=== PATIENT | male | born 1975 | race Hispanic/Latino ===

== ENCOUNTER 2021-08-01 11:04 | Outpatient (CLI) | payer MEDICARE | END 2021-08-01 11:05 | disposition home or self-care (01) | LOC: LAB 11:04 | PROVIDERS: ATTEND Student in an Organized Health Care Education/Training Program | DX: R78.89 Finding of other specified substances, not normally found in blood (principal) | CPT/HCPCS: 36415; 80178 ==

== ENCOUNTER 2021-09-22 20:06 | Emergency (ER) | payer MEDICARE ==
[2021-09-22] MEDS ORDERED: LORazepam 2 MG/ML VIAL IM PRN (21:02)
[2021-09-22] MEDS ORDERED: HALOPERIDOL LACTATE 5 MG/1 ML INJ IM PRN (21:02)
[2021-09-22] MEDS ORDERED: chlordiazePOXIDE 25 MG CAP PO PRN ×2 (21:03)
[2021-09-22] MEDS ORDERED: LORazepam 2 MG/ML VIAL IV PRN ×2 (21:03)
--- NOTE | 2021-09-22 21:04 | Emergency Department Report ---
ED General Adult HPI - General Chief complaint: Psych Stated complaint: They told me to come here Time Seen by Provider: 09/22/21 20:54 Source: patient, EMS ( EMS documentation not available at time of chart dictation ), RN notes reviewed, old records reviewed Mode of arrival: Ambulatory Limitations: No Limitations - History of Present Illness Initial comments: Patient is a 46-year-old gentleman, with no history of psychiatric disease, alcoholism, bipolar, possible diabetes and hypertension, presents to the ER with a complaint of "they told me to come here." The patient reports that he is requesting detox. When asked about feeling homicidal or suicidal, he states "it would just be quicker if I jumped off of a bridge." The patient denies overd ose. The patient is not COVID-19 vaccinated. On review of systems, he endorses chronic arthritic pain and musculoskeletal pain. He reports that he lives "all over." He denies trying to overdose. Severity scale (0 -10): 0 Improves with: none Worsens with: none - Related Data Allergies Allergy/AdvReac Type Severity Reaction Status Date / Time No Known Allergies Allergy Unverified 09/22/21 20:14 ED Review of Systems ROS: Stated complaint: PSYCH EVAL/ETOH Other details as noted in HPI Constitutional: denies: fever Eyes: denies: eye discharge ENT: denies: epistaxis Respiratory: denies: cough Cardiovascular: denies: chest pain Gastrointestinal: denies: abdominal pain Genitourinary: denies: dysuria Musculoskeletal: back pain, arthralgia Neurological: denies: weakness Psychiatric: anxiety, depression, suicidal thoughts ED Past Medical Hx - Past Medical History Previous Medical History?: Yes Hx Hypertension: Yes Hx Diabetes: Yes Hx Psychiatric Treatment: Yes (Bipolar) - Surgical History Past Surgical History?: No ED Physical Exam - General Limitations: No Limitations General appearance: alert, in no apparent distress - Head Head exam: Present: atraumatic, normocephalic - Eye Eye exam: Present: normal appearance, EOMI. Absent: nystagmus - ENT ENT exam: Present: normal exam, normal orophraynx, mucous membranes moist, normal external ear exam - Neck Neck exam: Present: normal inspection, full ROM. Absent: tenderness, meningismus - Respiratory Respiratory exam: Present: normal lung sounds bilaterally. Absent: respiratory distress, wheezes, rales, rhonchi, stridor, decreased breath sounds - Cardiovascular Cardiovascular Exam: Present: regular rate, normal rhythm, normal heart sounds. Absent: bradycardia, tachycardia, irregular rhythm, systolic murmur, diastolic murmur, rubs, gallop - GI/Abdominal GI/Abdominal exam: Present: soft. Absent: distended, tenderness, rebound, rigid, pulsatile mass - Rectal Rectal exam: Present: deferred - Extremities Exam Extremities exam: Present: normal inspection, full ROM, other (2+ pulses noted in the bilateral upper and lower extremities. There is no palpable cord. negative Homans sign. Muscular compartments are soft. The pelvis is stable.). Absent: pedal edema, calf tenderness - Back Exam Back exam: Present: normal inspection, full ROM. Absent: tenderness, CVA tenderness (R), CVA tenderness (L), paraspinal tenderness, vertebral tenderness - Neurological Exam Neurological exam: Present: alert, normal gait, other (No facial droop. Tongue midline. Extraocular movements intact bilaterally. Facial sensation intact to light touch in V1, V2, V3 distribution bilaterally. 5 and a 5 strength in 4 extremities. Sensation intact to light touch in 4 extremities.). Absent: motor sensory deficit - Psychiatric Psychiatric exam: Present: depressed, flat affect, suicidal ideation - Skin Skin exam: Present: warm, dry, intact, normal color. Absent: rash ED Course Vital Signs 09/22/21 20:14 Temperature 98 F Pulse Rate 94 H Respiratory 18 Rate Blood Pressure 130/80 [Right] O2 Sat by Pulse 98 Oximetry - Reevaluation(s) Reevaluation #1: 09/22/21 21:52 Differential diagnosis, including but not limited to: Depression, dysthymia, alcoholism, medical clearance for psychiatric placement Assessment and plan: 46-year-old gentleman, who was afebrile, with reassuring vital signs, who states he wants to jump off of a bridge. He is placed on a 1013. Psychiatric consultation is requested. Appropriate laboratory studies ordered. Have requested nursing team reconcile home medications. Covid swab ordered in anticipation of placement. Reassess after laboratory studies have resulted. Patient will require medical clearance prior to psychiatric disposition. 1013 form is filled out by myself. 09/22/21 23:17 Laboratory studies are reviewed and appreciated. They are unremarkable with the exception of hypokalemia, likely secondary to malnutrition and poor oral intake, and elevated blood alcohol level. Start multivitamins, folic acid, as well as potassium supplementation. Urinalysis, drug screen, and Covid swab pending. The emergency room will follow along as the patient provides these. At this point time, this patient does not appear to have an immediate medical contraindication to psychiatric admission, evaluation, consultation and placement. ED Medical Decision Making - Lab Data Result diagrams: 09/22/21 21:14 09/22/21 21:14 Vital Signs 09/22/21 20:14 Temperature 98 F Pulse Rate 94 H Respiratory 18 Rate Blood Pressure 130/80 [Right] O2 Sat by Pulse 98 Oximetry Lab Results 09/22/21 09/22/21 09/22/21 Range/Units 21:14 21:14 21:14 WBC 9.8 (4.5-11.0) K/mm3 RBC 4.40 (3.65-5.03) M/mm3 Hgb 13.6 (11.8-15.2) gm/dl Hct 40.6 (35.5-45.6) % MCV 92 (84-94) fl MCH 31 (28-32) pg MCHC 34 (32-34) % RDW 14.0 (13.2-15.2) % Plt Count 253 (140-440) K/mm3 Sodium 138 (137-145) mmol/L Potassium 3.1 L (3.6-5.0) mmol/L Chloride 99.0 (98-107) mmol/L Carbon Dioxide 26 (22-30) mmol/L Anion Gap 16 mmol/L BUN 9 (9-20) mg/dL Creatinine 0.6 L (0.8-1.3) mg/dL Estimated GFR > 60 ml/min BUN/Creatinine Ratio 15 % Glucose 138 H (75-100) mg/dL Calcium 8.6 (8.4-10.2) mg/dL Magnesium (1.7-2.3) mg/dL Total Creatine Kinase (55-170) units/L Salicylates < 0.3 L (2.8-20.0) mg/dL Acetaminophen (10.0-30.0) ug/mL [place] 0.1 (0.0-1.2) mmol/L Plasma/Serum Alcohol (0-0.07) % 09/22/21 09/22/21 09/22/21 Range/Units 21:14 21:14 21:14 WBC (4.5-11.0) K/mm3 RBC (3.65-5.03) M/mm3 Hgb (11.8-15.2) gm/dl Hct (35.5-45.6) % MCV (84-94) fl MCH (28-32) pg MCHC (32-34) % RDW (13.2-15.2) % Plt Count (140-440) K/mm3 Sodium (137-145) mmol/L Potassium (3.6-5.0) mmol/L Chloride (98-107) mmol/L Carbon Dioxide (22-30) mmol/L Anion Gap mmol/L BUN (9-20) mg/dL Creatinine (0.8-1.3) mg/dL Estimated GFR ml/min BUN/Creatinine Ratio % Glucose (75-100) mg/dL Calcium (8.4-10.2) mg/dL Magnesium 1.90 (1.7-2.3) mg/dL Total Creatine Kinase (55-170) units/L Salicylates (2.8-20.0) mg/dL Acetaminophen 5.0 L (10.0-30.0) ug/mL [place] (0.0-1.2) mmol/L Plasma/Serum Alcohol 0.23 H (0-0.07) % 09/22/21 Range/Units 21:14 WBC (4.5-11.0) K/mm3 RBC (3.65-5.03) M/mm3 Hgb (11.8-15.2) gm/dl Hct (35.5-45.6) % MCV (84-94) fl MCH (28-32) pg MCHC (32-34) % RDW (13.2-15.2) % Plt Count (140-440) K/mm3 Sodium (137-145) mmol/L Potassium (3.6-5.0) mmol/L Chloride (98-107) mmol/L Carbon Dioxide (22-30) mmol/L Anion Gap mmol/L BUN (9-20) mg/dL Creatinine (0.8-1.3) mg/dL Estimated GFR ml/min BUN/Creatinine Ratio % Glucose (75-100) mg/dL Calcium (8.4-10.2) mg/dL Magnesium (1.7-2.3) mg/dL Total Creatine Kinase 292 H (55-170) units/L Salicylates (2.8-20.0) mg/dL Acetaminophen (10.0-30.0) ug/mL [place] (0.0-1.2) mmol/L Plasma/Serum Alcohol (0-0.07) % Critical care attestation.: If time is entered above; I have spent that time in minutes in the direct care of this critically ill patient, excluding procedure time. ED Disposition Clinical Impression: Encounter for medical screening examination, Medical clearance for psychiatric admission, Alcohol intoxication, Hypokalemia Disposition: [address] [place] [address] Is pt being admited?: No Does the pt Need Aspirin: No Condition: Good
[2021-09-22 21:57] LABS: Hematocrit 40.6 % (35.5-45.6); Hemoglobin 13.6 gm/dl (11.8-15.2); Mean Corpuscular HGB Conc 34 % (32-34); Mean Corpuscular Volume 92 fl (84-94); Platelet Count 253 K/mm3 (140-440)
[2021-09-22 22:10] LABS: Blood Urea Nitrogen 9 mg/dL (9-20); Calcium 8.6 mg/dL (8.4-10.2); Hemolysis Index 10
[2021-09-22 22:13] LABS: BUN/Creatinine Ratio 15
[2021-09-22] MEDS ORDERED: POTASSIUM CHLORIDE ER 20 MEQ TAB PO ONE (23:13)
[2021-09-22 23:26] LABS: Amphetamine Screen,Urine PRESUMPTIVE NEGATIVE; Benzodiazepines Screen,Urine PRESUMPTIVE NEGATIVE; Cannabinoid Screen,Urine PRESUMPTIVE NEGATIVE; Cocaine Screen,Urine PRESUMPTIVE POSITIVE; Methadone Screen,Urine PRESUMPTIVE NEGATIVE; Opiate Screen,Urine PRESUMPTIVE NEGATIVE
[2021-09-22 23:32] LABS: Bilirubin,Urine NEG (Negative); Blood,Urine NEG (Negative); Color,Urine Straw (Yellow); Protein,Urine <15 mg/dL mg/dL (Negative); RBC,Urine < 1.0 /HPF (0.0-6.0); Urobilinogen,Urine < 2.0 mg/dL (<2.0); WBC,Urine < 1.0 /HPF (0.0-6.0)
[2021-09-23 08:40] VITALS: BP 155/101
[2021-09-23] MEDS ORDERED: FOLIC ACID 1 MG TAB PO SCH (10:00)
[2021-09-23] MEDS ORDERED: MULTIVITAMINS ,THERAPEUTIC TAB PO SCH (10:00)
[2021-09-23] MEDS ORDERED: POTASSIUM CHLORIDE ER 20 MEQ TAB PO SCH (10:00)
== END 2021-09-23 08:54 ==
LOC: EEVIPCON 20:06 → ED 20:06
DX: Z13.30 Encounter for screening examination for mental health and behavioral disorders, unspecified (principal); F10.129 Alcohol abuse with intoxication, unspecified; E87.6 Hypokalemia; I10 Essential (primary) hypertension; E11.9 Type 2 diabetes mellitus without complications; F31.9 Bipolar disorder, unspecified
CPT/HCPCS: 36415; 80048; 80178; 80307; 80320; 81001; 82550; 83735; 85027; 99285; G0480